=== PATIENT | male | born 1955 | race Caucasian/White ===

== ENCOUNTER 2016-11-05 03:28 | Inpatient (IN) | payer BC ==
--- NOTE | ~2016-11-05 | OP ---
Record Of Operation [facility] [address] [place]. [address] NAME: ANDRE ZULUAGA : 59 STATUS : ADM Denis PAT#: [id number] AGE: 61 ADM/REG DATE : 11/05/16 MR#: [id number] REPORT SERV DATE: 11/06/16 DICTATED BY: LEÓN NICK DATE: 11/05/16 REPORT STATUS : Draft TRANSCRIBED BY: MODL DATE: 11/05/16 DATE OF PROCEDURE: 11/05/2016 PROCEDURE: Left heart catheterization, left ventriculography, coronary angiography, saphenous vein graft angiography, left internal mammary artery graft angiography. INDICATIONS: Known coronary artery disease, status post CABG, [id number]-VB-eciondyel RI. RESIDENT ASSISTANT CNA: León Nick M.D., [facility]. PROCEDURE NOTE READS FOLLOWS: Informed consent obtained. The patient was brought to catheterization laboratory in the fasting state with renal prophylaxis protocol initiated. Routine sterile prep and drape performed. Monitored sedation administered. A 2% Xylocaine with epinephrine infiltrated to right groin. A 6-Malawian sheath to right femoral artery following the anterior wall puncture. A 6-Malawian JL5 and JR4 catheter was used to cannulate coronary artery ostia with angiography of each vessel performed. JR4 catheter redirected into aortotomy of vein graft to left coronary artery with angiography performed. JR4 catheter redirected to left subclavian artery and engaged ostium of left internal mammary artery graft with angiography performed. All catheters removed. Right common femoral arterial sheath side port angiography performed followed by ProGlide closure of common femoral puncture site. The patient to recovery area in satisfactory condition, without immediate complication. TOTAL CONTRAST: 145 mL Isovue-370. TOTAL X-RAY DOSE: 824 mGy. TOTAL MONITORED SEDATION TIME: 28 minutes. HEMODYNAMICS: Central aortic pressure 160/90 mmHg, mean 120 mmHg, left ventricular pressure 160/26 mmHg. LEFT VENTRICULOGRAPHY: In MAN left ventriculography, all segments moved normally. Ejection fraction is estimated to be no lower than 60%. No mitral regurgitation identified. CORONARIES: 1. Left main coronary artery: Medium caliber, medium length vessel without stenosis. 2. LAD: Occluded at its origin. A high diagonal or ramus intermedius vessel exhibits 80% proximal narrowing and competitive flow distally. 3. Circumflex: A medium caliber, angiographically nondominant vessel. A high obtuse marginal vessel and ramus intermedius vessel fills antegrade. One obtuse marginal vessel fills antegrade. 4. Right coronary artery large caliber, angiographically dominant vessel terminating as posterolateral and posterior descending artery. Luminal irregularities in distal right coronary artery identified. 5. Bypass grafts each one gets its own. Record Of Operation [address] [place]. [address] NAME: ANDRE ZULUAGA : 59 STATUS : ADM Denis PAT#: [id number] AGE: 61 ADM/REG DATE : 11/05/16 MR#: [id number] REPORT SERV DATE: 11/06/16 DICTATED BY: LEÓN NICK DATE: 11/05/16 REPORT STATUS : Draft TRANSCRIBED BY: MARIN DATE: 11/05/16 6. Saphenous vein graft to diagonal vessel patent throughout its course with antegrade filling of diagonal and retrograde filling into competitively filled LAD. 7. MOCK to LAD: Widely patent throughout its course with brisk antegrade and retrograde filling of a very small caliber LAD. FINAL IMPRESSION: 1. Systolic hypertension. 2. Moderately elevated left ventricular end-diastolic pressure. 3. Normal left ventricular ejection fraction without segmental wall motion abnormalities. 4. No mitral regurgitation. 5. Occluded LAD with patent MOCK graft to LAD. 6. Diffusely diseased high diagonal vessel (ramus intermedius vessel) with patent saphenous vein graft to this target. 7. Luminal irregularities in distal right coronary artery. 8. Angiographically normal circumflex artery. /MARIN León Nick M.D. / [id number] CC: Valery Alcantara III, M.D.
--- NOTE | ~2016-11-05 | HP ---
History And Physical [address] [address] NAME: ANDRE ZULUAGA : 59 STATUS : ADM Denis PAT#: [id number] AGE: 61 ADM/REG DATE : 11/05/16 MR#: [id number] REPORT SERV DATE: 11/05/16 DICTATED BY: LEÓN NICK DATE: 11/05/16 REPORT STATUS : Draft TRANSCRIBED BY: MODL DATE: 11/05/16 DATE OF ADMISSION: 11/05/2016 CHIEF COMPLAINT: Chest pain. HISTORY OF PRESENT ILLNESS: A 61-year-old man, followed by Dr. Mott, known to me from prior care has a history of coronary artery disease with myocardial infarction in 2000 and 2 vessel CABG in 2003 (anatomy unknown), type 2 diabetes, hypertension, hypercholesteremia, former smoker and mild aortic stenosis. The patient has had coryza symptoms of late and was treated at a walk-in center with therapy including steroid injection. He became more short of breath yesterday evening and developed chest pain which is described as diaphragmatic. This lasted 90 minutes. Pain did not radiate. He had paroxysms of cough and this aggravated the pain. He presented to the emergency room at [facility] where EKG demonstrated nonspecific ST-segment abnormalities and troponin I was minimally positive. He has not had recurrent chest pain since transfer to [facility]. PAST MEDICAL HISTORY: 1. CAD - 2-vessel CABG 2003 with unknown anatomy; 03/2015, MPI normal. 2. Former smoker. 3. Hypercholesteremia - treated. 4. Hypertension - treated. 5. DANIA - treated. 6. DM 2 - treated. 7. Aortic stenosis - 06/2016 echo, aortic valve area 2.1 cm2. MEDICATIONS: NovoLog, corrected dosing t.i.d.; fenofibrate 160 mg once a day; Plavix 75 mg once a day; losartan 50 mg once a day; Crestor 40 mg once a day; Lasix 40 mg once a day, taking irregularly; KCl 20 mEq a day; atenolol 50 mg daily; clonidine 0.2 mg twice a day; Tresiba FlexTouch 200 units/mL, corrected dosing, flex pen injector; men's multivitamins daily; CPAP at bedtime. ALLERGIES: PENICILLIN. SOCIAL HISTORY: The patient is . He is a former smoker. FAMILY HISTORY: Noncontributory. REVIEW OF SYSTEMS: Recent coryza symptoms with cough. PHYSICAL EXAMINATION: GENERAL: No acute distress 119/95, respirations 20, 98.6, pulse 60 and regular. NECK: No JVD. LUNGS: Scattered wheeze. History And Physical [address] [place]. [address] NAME: ANDRE ZULUAGA : 59 STATUS : ADM Denis PAT#: [id number] AGE: 61 ADM/REG DATE : 11/05/16 MR#: [id number] REPORT SERV DATE: 11/05/16 DICTATED BY: LEÓN NICK DATE: 11/05/16 REPORT STATUS : Draft TRANSCRIBED BY: MARIN DATE: 11/05/16 CARDIAC: II/ systolic murmur. No diastolic murmur. ABDOMEN: Obese. EXTREMITIES: Warm without edema. Right and left dorsalis pedis pulses +2. DATA: Troponin I 0.07, BUN and creatinine 24 and 1.31 yielding EGFR 59. White blood cell count 7.8000, hematocrit 46.7%, platelet count 356,000. EKG sinus rhythm, a rate of 74, normal axes and intervals, lateral 0.[address] depression and T-wave inversion. ASSESSMENT AND PLAN: 1. Non ST-elevation myocardial infarction - chest pain free now. Unclear whether this is type 2 infarction or type 1 infarction. With coronary artery disease, chest pain and EKG changes with positive troponin, a cardiac catheterization is indicated. Aspirin and Plavix begun. Heparin begun. Catheterization and possible PCI scheduled for today with all risks discussed. 2. Coronary artery disease - status post CABG remotely with unknown anatomy. 3. Diabetes mellitus 2 - consult hospitalist. 4. Aortic stenosis - mild. 5. Obstructive sleep apnea - treated. 6. Hypercholesteremia - resuming treatment. 7. Chronic kidney disease 3 - noted. /CHASEL León Nick M.D. / [id number] CC: Valery Alcantara III, M.D.
--- NOTE | ~2016-11-05 | CN ---
Consultation Report [facility] [address] [place]. [address] NAME: ANDRE ZULUAGA : 59 STATUS : ADM Denis PAT#: [id number] AGE: 61 ADM/REG DATE : 11/05/16 MR#: [id number] REPORT SERV DATE: 11/05/16 DICTATED BY: JODY CRONIN DATE: 11/05/16 REPORT STATUS : Draft TRANSCRIBED BY: MODRidge DATE: 11/05/16 CONSULTATION DATE OF CONSULTATION: 11/05/2016 REASON FOR CONSULT: Insulin-treated diabetes mellitus type 2 with hypoglycemia. Consult requested by Dr. Nick. HISTORY OF PRESENT ILLNESS: This is a 61-year-old gentleman with medical history significant for coronary artery disease, status post CABG, hypertension, insulin-treated diabetes mellitus, obesity, obstructive sleep apnea, who presented to the hospital with complaints of chest pain. The patient reports that he developed sudden worsening chest pain that woke him up from sleep. It was 10/10 in intensity and radiating across his chest, and hence decided to go to the emergency room at [facility] for further evaluation. At the emergency room, he was found to have elevated troponin. EKG showed no evidence of STEMI. There was concern for NSTEMI. The patient was started on heparin drip and beta blockers, was then subsequently transferred to [facility] for cardiac catheterization under the care of his primary reprographics associate, Dr. Nick. During the course of this admission, the patient was noted to have an episode of hypoglycemia of blood sugar of 56 mg/dL. Hence, the hospitalist service was consulted to help in the management of insulin-treated diabetes mellitus. The patient reports that he was diagnosed with diabetes mellitus several years ago, currently under the care of primary slip presser, Dr. Martin. He has had multiple trials of different types of insulin including Levemir, Lantus as an outpatient without significant improvement in his blood sugar control. At around May last year, his slip presser started him on Tresiba FlexPen 100 units at bedtime with a NovoLog sliding scale. The patient reports that with this current insulin therapy, his blood sugar control has improved significantly, although he continues to have one to two of hypoglycemia a month prior to presentation. Last known hypoglycemia was several weeks ago. He reports that his blood sugar usually drops into the 50s then with response with oral glucose pills as well as orange juice with good response. The patient denies any hypoglycemic coma. Denies diabetes ketoacidosis. Denies any polyuria, polyphagia, or nocturia. PAST MEDICAL HISTORY: Includes: 1. Coronary artery disease, status post CABG. 2. Insulin-treated diabetes mellitus. 3. Obstructive sleep apnea. 4. History of mild aortic stenosis. 5. Dyslipidemia. 6. Chronic kidney disease, stage 3. FAMILY HISTORY: Significant for diabetes mellitus and hypertension. Consultation Report [facility] [address] [place]. [address] NAME: ANDRE ZULUAGA : 59 STATUS : ADM Denis PAT#: [id number] AGE: 61 ADM/REG DATE : 11/05/16 MR#: [id number] REPORT SERV DATE: 11/05/16 DICTATED BY: JODY CRONIN DATE: 11/05/16 REPORT STATUS : Draft TRANSCRIBED BY: MARIN DATE: 11/05/16 SOCIAL HISTORY: Quit smoking several years ago. Denies drinking alcohol or illicit drug use. Currently . ALLERGIES: PENICILLIN. HOME MEDICATIONS: 1. Guaifenesin with codeine 5 mL p.o. 2. Insulin aspart per sliding scale. 3. Melatonin 20 mg p.o. at bedtime as needed. 4. Benadryl 50 mg p.o. at bedtime as needed. 5. Plavix 75 mg p.o. at bedtime. 6. Ciprofloxacin 500 mg p.o. b.i.d. 7. Losartan 50 mg p.o. at bedtime. 8. Rosuvastatin 40 mg p.o. at bedtime. 9. Clonidine 0.2 mg p.o. b.i.d. 10.Insulin Tresiba FlexTouch U-200 pen, 100 units subcu at bedtime. 11.Fenofibrate 160 mg p.o. at bedtime. 12.Atenolol 50 mg p.o. at bedtime. 13.Lasix 80 mg p.o. at bedtime. 14.K-Dur 20 mEq p.o. b.i.d. REVIEW OF SYSTEMS: A 12-point review of system conducted. Positive findings include respiratory symptoms of cough productive of yellow sputum, but denies any cough productive of yellow sputum with expectorate with some wheezes and shortness. Denies any fever or chills. All other systems reviewed essentially negative. Positive findings as per HPI. PHYSICAL EXAMINATION: VITAL SIGNS: Blood pressure 137/75, temperature 98, pulse 71, respiratory rate 16 cycles per minute, and saturating 97% on room air. GENERAL: Not in any acute respiratory distress. HEENT: Extraocular muscles intact. Pupils are equal, round, and reactive. Not pale. Anicteric. NECK: Supple. No JVD. CHEST: Equal expansion. Diffuse expiratory wheezes in all lung conley. CARDIOVASCULAR: Regular rate and rhythm. S1 and S2. No murmurs, no rubs, no gallops. ABDOMEN: Bowel sounds normoactive. Obese. Midline. Paraumbilical healed surgical scar with appearance of reducible umbilical hernia. EXTREMITIES: No pedal edema. LABORATORY DATA: Sodium 143, potassium 3.2, chloride 104, bicarb 29, BUN 24, creatinine 1.31, GFR 59, glucose 152. Calcium 8.9. Magnesium 1.8. Cholesterol 130, HDL 27, LDL 67. ALT 29, AST 17, alkaline phos 116. Troponin 0.07. Consultation Report [address] [address] NAME: ANDRE ZULUAGA : 59 STATUS : ADM Denis PAT#: [id number] AGE: 61 ADM/REG DATE : 11/05/16 MR#: [id number] REPORT SERV DATE: 11/05/16 DICTATED BY: JODY CRONIN DATE: 11/05/16 REPORT STATUS : Draft TRANSCRIBED BY: MODRidge DATE: 11/05/16 Hematology : WBC 7.9, hemoglobin 15.2, hematocrit 43.5, platelets 318. INR 1.0, PT 12.7. ASSESSMENT AND PLAN: This is a 61-year-old gentleman with medical history significant for coronary artery disease, status post CABG, who presented to the hospital with concerns of chest pain, elevated troponin concerning for NSTEMI, currently n.p.o. awaiting left cardiac catheterization. Hospitalist Service consulted for management of insulin-treated diabetes mellitus with hypoglycemia. Insulin-treated diabetes mellitus type 2. At this point, we will hold off the patient's home dose of Tresiba FlexPen. An attempt was made by me to reach out to the patient's primary slip presser, Dr. Martin as requested by the patient, but all effort was futile. I will start the patient on Levemir at bedtime and sliding scale. I will start the patient on Levemir at bedtime and continue level 2 sliding scale. Monitor the patient's glucose closely. I will recommend Accu-Chek a.c. plus h.s. We will continue long-acting insulin and hold off short-acting insulin when the patient is n.p.o. We will continue to follow the patient's blood sugar closely during the course of this admission. Thank you very much for this interesting consult. The hospitalist service will gladly follow up with you in the management of this patient's blood sugar. IOO/MODL Jody Cronin MD / [id number] CC: Valery Alcantara III, M.D.
[~2016-11-05 03:28] MED LIST: ATEN50 PO; CAT1 PO; CHERATUSSIN PO; CIP5 PO; COZ25 PO; CRESTOR40 MG PO; GLUCOPHAGE1000 MG PO; HYDROCHLOROT25 MG PO; KLOR-CON M2020 MEQ PO; L40; LOFIB160 PO; NOVOLOG SC; PLAVIX PO; TRESIBA FL100 UNIT/1 SC
[2016-11-05 08:36] LABS: HEMATOCRIT 43.5 % (40.0-51.0); HEMOGLOBIN 15.2 g/dL (13.6-17.8); MEAN CORPUS HGB CONC 34.9 g/dL (32.0-36.0); MEAN CORPUSCULAR HEMOGLOB 30.3 pg (26.0-34.0); MEAN CORPUSCULAR VOLUME 86.8 fL (80-100); PLATELET COUNT 318 10/3/uL (150-400); RBC DISTRIBUTION WIDTH 13.7 % (12.0-16.0); RED CELL COUNT 5.01 10/6/uL (4.7-6.1); WHITE BLOOD CELLS 7.9 10/3/uL (4.5-10.5)
[2016-11-05 08:45] LABS: MANUAL DIFF YES %
[2016-11-05 09:00] LABS: CHOL/HDL RATIO(NOT ORDER) 4.8 (0-5); CHOLESTEROL 130 MG/DL (< 200); CK-MB 1.3 NG/ML; CPK 138 U/L (0-200); HDL CHOLESTEROL 27 MG/DL (> 39); LDL CHOLESTEROL 53 MG/DL (< 130); NON-HDL CHOLESTEROL 103 MG/DL (< 160); SGPT(ALT) 29 U/L (5-65); TRIGLYCERIDE 250 MG/DL (< 150); TROPONIN I 0.07 NG/ML (<0.05)
[2016-11-05 09:52] LABS: BAND NEUTROPHILS 2 %; EOSINOPHILS 4 %; EOSINOPHILS ABSOLUTE (CALC) 0.32 10/3/uL (0.0-0.53); LYMPHOCYTES 28 %; LYMPHOCYTES ABSOLUTE (CALC) 2.21 10/3/uL (0.67-4.30); MONOCYTES 7 %; MONOCYTES ABSOLUTE (CALC) 0.55 10/3/uL (0.21-1.20); NEUTROPHILS ABSOLUTE (CALC) 4.82 10/3/uL (2.02-8.40); PLATELET ESTIMATE ADQ (ADEQUATE); RBC MORPHOLOGY NORM (NORMAL); SEGMENTED NEUTROPHIL (0) 59 %; TOTAL NUCLEATED CELLS 100
[2016-11-05] MEDS ORDERED: NOVOPEN SC (13:00)
[2016-11-05] MEDS ORDERED: MELATONIN5 M1 PO (13:03)
[2016-11-05] MEDS ORDERED: BEN25 PO (13:04)
[2016-11-05] MEDS ORDERED: [UNRECOGNIZED DRUG - REMARK] PO (13:04)
[2016-11-05] MEDS ORDERED: MAGNESIUM PO (13:05)
[2016-11-05] MEDS ORDERED: STEROID INJECTION IM (13:06)
[2016-11-05] MEDS ORDERED: ANTIBIOTIC IM (13:06)
[2016-11-05] MEDS ORDERED: PLAVIX PO ×2 (13:07→13:09)
[2016-11-05] MEDS ORDERED: CENTRUM PO (13:07)
[2016-11-05] MEDS ORDERED: CIP5 PO (13:08)
[2016-11-05] MEDS ORDERED: COZ50 PO (13:08)
[2016-11-05] MEDS ORDERED: CRESTOR40 MG PO (13:08)
[2016-11-05] MEDS ORDERED: CAT2 PO (13:09)
[2016-11-05] MEDS ORDERED: TRESIBA FL200 UNIT/1 SC (13:10)
[2016-11-05] MEDS ORDERED: LOFIB160 PO (13:10)
[2016-11-05] MEDS ORDERED: L80 PO (13:10)
[2016-11-05] MEDS ORDERED: ATEN50 PO (13:10)
[2016-11-05] MEDS ORDERED: KDUR20 PO (13:12)
[2016-11-06 06:55] LABS: BASOPHILS 0.6 %; BASOPHILS ABSOLUTE 0.03 10/3/uL (0.0-0.16); EOSINOPHILS 4.1 %; HEMOGLOBIN 14.2 g/dL (13.6-17.8); IMMATURE GRANULOCYTES 1.2 %; IMMATURE GRANULOCYTES ABSOLUTE 0.06 10/3/uL (0.0-0.11); LYMPHOCYTES 37.1 %; LYMPHOCYTES ABSOLUTE 1.82 10/3/uL (0.67-4.30); MEAN CORPUS HGB CONC 33.8 g/dL (32.0-36.0); MEAN CORPUSCULAR HEMOGLOB 29.7 pg (26.0-34.0); MEAN CORPUSCULAR VOLUME 87.9 fL (80-100); MEAN PLATELET VOLUME 9.3 fL (9.2-13.0); MONOCYTES 14.5 %; MONOCYTES ABSOLUTE 0.71 10/3/uL (0.21-1.20); NEUTROPHILS 42.5 %; NEUTROPHILS ABSOLUTE 2.08 10/3/uL (2.02-8.40); PLATELET COUNT 236 10/3/uL (150-400); RBC DISTRIBUTION WIDTH 13.8 % (12.0-16.0); RED CELL COUNT 4.78 10/6/uL (4.7-6.1); WHITE BLOOD CELLS 4.9 10/3/uL (4.5-10.5)
[2016-11-06 06:57] LABS: MANUAL DIFF NO %
[2016-11-06 07:04] LABS: PARTIAL THROMBO TIME 28.2 SEC (22.5-37.2)
[2016-11-06 07:11] LABS: CALCIUM, SERUM 8.1 MG/DL (8.5-10.4); CHLORIDE, SERUM 105 MMOL/L (96-112); CO2 (CARBON DIOXIDE) 26 MMOL/L (24-34); GFR AFRICAN AMERICAN 85 ML/MIN (>=60); GFR NON AFRICAN AMERICAN 73 ML/MIN (>=60); POTASSIUM, SERUM 3.7 MMOL/L (3.5-5.3); SODIUM, SERUM 141 MMOL/L (135-148)
[2016-11-06 07:12] LABS: BUN (BLOOD UREA NITROGEN) 19 MG/DL (6-23); GLUCOSE, SERUM 119 MG/DL (60-99)
[2016-11-07] MEDS ORDERED: P20 PO (11:36)
[2016-11-07] MEDS ORDERED: LEVAQUIN750 MG PO (11:37)
== END 2016-11-07 16:53 | disposition home or self-care (01) | DRG 281 ==
LOC: 5NO 03:28
PROVIDERS: Emergency Medicine; Internal Medicine Cardiovascular Disease
PROC: 4A023N7 Measurement of Cardiac Sampling and Pressure, Left Heart, Percutaneous Approach (ICD-10-PCS; principal; 2016-11-05)
PROC: B2111ZZ Fluoroscopy of Multiple Coronary Arteries using Low Osmolar Contrast (ICD-10-PCS; 2016-11-05)
PROC: B2131ZZ Fluoroscopy of Multiple Coronary Artery Bypass Grafts using Low Osmolar Contrast (ICD-10-PCS; 2016-11-05)
PROC: B2181ZZ Fluoroscopy of Left Internal Mammary Bypass Graft using Low Osmolar Contrast (ICD-10-PCS; 2016-11-05)
DX: I21.4 Non-ST elevation (NSTEMI) myocardial infarction (principal); I25.810 Atherosclerosis of coronary artery bypass graft(s) without angina pectoris; E11.22 Type 2 diabetes mellitus with diabetic chronic kidney disease; N18.3 Chronic kidney disease, stage 3 (moderate); Z95.1 Presence of aortocoronary bypass graft; I35.0 Nonrheumatic aortic (valve) stenosis; G47.33 Obstructive sleep apnea (adult) (pediatric); E78.00 Pure hypercholesterolemia, unspecified; Z79.4 Long term (current) use of insulin; I12.9 Hypertensive chronic kidney disease with stage 1 through stage 4 chronic kidney disease, or unspecified chronic kidney disease
CPT/HCPCS: 80048; 80061; 82550; 82553; 82962; 84460; 84484; 85025; 85730; 93005; 93459; 94640; 99152; 99153; A9270-GY; C1760; C1769; C1894; J1956; J2250; J2930; J3010; Q9967